=== PATIENT | female | born 1975 | race Caucasian/White ===

== ENCOUNTER 2018-04-15 17:21 | Emergency (ER) | payer BC, OTHER ==
[2018-04-15] MEDS ORDERED: SODIUM CHLORIDE 0.9% 1,000 ML IV STA (18:15)
[2018-04-15] MEDS ORDERED: KETOROLAC 30 MG/ML 1 ML VIAL IVP STA (18:15)
--- NOTE | 2018-04-15 18:15 | ED ---
General Adult HPI - General Source: patient, RN notes reviewed Mode of arrival: ambulatory Limitations: no limitations <Xiang Fernandez - Last Filed: 04/15/18 20:57> <Shayan Kaplan - Last Filed: 04/15/18 22:45> - General Chief complaint: Abdominal Pain Stated complaint: POSS GALLBLADDER Time Seen by Provider: 04/15/18 17:47 - History of Present Illness Initial comments: 43-year-old female presents to the emergency department for a chief complaint of left upper back pain. Patient states this has been ongoing for 3 years. Patient states she finally came to the emergency department to get this evaluated because it was somewhat worse today. Patient states she believes this is her gallbladder. She states her mother had the same symptoms when she had her "gall bladder attack" and when she had appendicitis she had symptoms on the left side. Patient describes this pain as a sharp pain in her left side upper back. She denies any radiating pain. She states that she moves her arm and makes the pain in her back worse but denies any left upper arm pain. She denies any anterior chest pain or abdominal pain. She does admit that she has a sensation of fullness at times after eating. No nausea or vomiting. No cardiac history. Patient has no other complaints at this time including shortness of breath, chest pain, headache, or visual changes. (Xiang Fernandez) - Related Data Home Medications Medication Instructions Recorded Confirmed Fluticasone Nasal [place] [Flonase 2 spray EA NOSTRIL BID PRN 04/15/18 04/15/18 Nasal [place]] Loratadine [Claritin] 10 mg PO DAILY 04/15/18 04/15/18 Multivitamins, Thera [Multivitamin 1 tab PO DAILY 04/15/18 04/15/18 (formulary)] Allergies Allergy/AdvReac Type Severity Reaction Status Date / Time gluten Allergy Nausea & Verified 04/15/18 17:57 Vomiting lactase [From Dairy Aid] Allergy Unknown Verified 04/15/18 17:57 Sulfa (Sulfonamide Allergy Rash/Hives Verified 04/15/18 17:57 Antibiotics) Review of Systems ROS Other: All systems not noted in ROS Statement are negative. <Xiang Fernandez - Last Filed: 04/15/18 20:57> ROS Other: All systems not noted in ROS Statement are negative. <Shayan Kaplan - Last Filed: 04/15/18 22:45> ROS Statement: Those systems with pertinent positive or pertinent negative responses have been documented in the HPI. Past Medical History Additional Past Medical History / Comment(s): POSSIBLE GLUTEN INTOLERANCE, OVARIAN CYSTS History of Any Multi-Drug Resistant Organisms: None Reported Past Surgical History: Appendectomy Past Psychological History: No Psychological Hx Reported Smoking Status: Never smoker Past Alcohol Use History: None Reported Past Drug Use History: None Reported <Xiang Fernandez - Last Filed: 04/15/18 20:57> General Exam Limitations: no limitations General appearance: alert, in no apparent distress Head exam: Present: atraumatic, normocephalic, normal inspection Eye exam: Present: normal appearance, PERRL, EOMI. Absent: scleral icterus, conjunctival injection, periorbital swelling ENT exam: Present: normal exam, mucous membranes moist Neck exam: Present: normal inspection, full ROM. Absent: tenderness, meningismus, lymphadenopathy Respiratory exam: Present: normal lung sounds bilaterally. Absent: respiratory distress, wheezes, rales, rhonchi, stridor Cardiovascular Exam: Present: regular rate, normal rhythm, normal heart sounds. Absent: systolic murmur, diastolic murmur, rubs, gallop, clicks GI/Abdominal exam: Present: soft, normal bowel sounds. Absent: distended, tenderness (No tenderness in the abdomen including in the right upper quadrant) , guarding, rebound, rigid Back exam: Present: tenderness (It is to the upper thoracic back). Absent: CVA tenderness (R), CVA tenderness (L) Neurological exam: Present: alert, oriented X3, CN II-XII intact Psychiatric exam: Present: normal affect, normal mood <Xiang Fernandez - Last Filed: 04/15/18 20:57> Course <Xiang Fernandez - Last Filed: 04/15/18 20:57> <Shayan Kaplan - Last Filed: 04/15/18 22:45> Vital Signs 04/15/18 04/15/18 17:28 22:02 Temperature 98.5 F 98.5 F Pulse Rate 80 83 Respiratory 16 18 Rate Blood Pressure 153/92 105/68 O2 Sat by Pulse 100 99 Oximetry - Reevaluation(s) Reevaluation #1: 04/15/18 17:50 When I saw patient I discussed that with the symptoms a CT of the chest should be obtained to evaluate aorta as well as an EKG. Patient refused this. She states she believes has her gallbladder and she does not insurance. Patient is aware of the risks. (Xiang Fernandez) Reevaluation #2: 04/15/18 20:37 At this time patient was informed that her gallbladder does not appear abnormal. Patient now agrees to have EKG and CT done. (Xiang Fernandez) EKG Findings - EKG Comments: EKG Findings:: NSR with a ventricular rate of 88, CA interval 152, QRS duration 90, QTc 450 <Xiang Fernandez - Last Filed: 04/15/18 20:57> Medical Decision Making - Lab Data Result diagrams: 04/15/18 18:26 04/15/18 18:26 <Xiang Fernandez - Last Filed: 04/15/18 20:57> - Lab Data Result diagrams: 04/15/18 18:26 04/15/18 18:26 <Shayan Kaplan - Last Filed: 04/15/18 22:45> - Medical Decision Making 43-year-old female presents to the emergency department for a chief complaint of left upper back pain by scapula. Patient states pain is worse with movement of the left arm. She denies any anterior chest pain she denies any abdominal pain. Triage note says patient has anterior chest pain however patient completely denies this when I speak with her. Patient states she believes this is her gallbladder. She states she has had these symptoms for years and pain is responsive to her diet. I spoke with patient and educated her that this could be cardiac in nature and I have a low suspicion of gallbladder as she does not have any right upper quadrant tenderness or pain. Patient states she does not think it is cardiac in nature and does not have insurance so does not want cardiac testing. She refuses EKG and CT at this time despite knowing the risks of aortic rupture. She did agree to lab work which showed a CBC and CMP within normal limits. Troponin less than 0.012. Amylase and lipase are within normal limits. She agreed to chest x-ray showed a normal chest. After ultrasound results showed a normal right upper quadrant without gallstones or dilated ducts, patient did agree to CAT scan and EKG. EKG was immediately obtained. CT chest abdomen pelvis was ordered to visualize aorta. Care signed out to Dr Kaplan at 2101 (Xiang Fernandez) The computed tomography scan of the abdomen, pelvis, and thorax was completed and is negative. She is feeling remarkably improved on recheck. It is felt as though her back pain likely could be related to musculoskeletal component. There is some mild muscle spasm on the left thoracic region. She does see a chiropractor at times for her neck and it is felt as though she may benefit from following up with the chiropractor for her back as well. This felt as though she is stable for discharge and leaves in no identifiable distress. ( Shayan Kaplan) - Lab Data Lab Results 04/15/18 04/15/18 04/15/18 Range/Units 18:26 18:26 18:26 WBC 7.7 (3.8-10.6) k/uL RBC 4.07 (3.80-5.40) m/uL Hgb 12.4 (11.4-16.0) gm/dL Hct 37.6 (34.0-46.0) % MCV 92.4 (80.0-100.0) fL MCH 30.5 (25.0-35.0) pg MCHC 33.0 (31.0-37.0) g/dL RDW 14.7 (11.5-15.5) % Plt Count 463 H (150-450) k/uL Neutrophils % 69 % Lymphocytes % 22 % Monocytes % 5 % Eosinophils % 2 % Basophils % 1 % Neutrophils # 5.3 (1.3-7.7) k/uL Lymphocytes # 1.7 (1.0-4.8) k/uL Monocytes # 0.4 (0-1.0) k/uL Eosinophils # 0.2 (0-0.7) k/uL Basophils # 0.0 (0-0.2) k/uL PT (9.0-12.0) sec INR (<1.2) APTT (22.0-30.0) sec Sodium 141 (137-145) mmol/L Potassium 3.9 (3.5-5.1) mmol/L Chloride 104 (98-107) mmol/L Carbon Dioxide 28 (22-30) mmol/L Anion Gap 9 mmol/L BUN 9 (7-17) mg/dL Creatinine 0.67 (0.52-1.04) mg/dL Est GFR (CKD-EPI)AfAm >90 (>60 ml/min/1.73 sqM) Est GFR (CKD-EPI)NonAf >90 (>60 ml/min/1.73 sqM) Glucose 101 H (74-99) mg/dL Calcium 9.8 (8.4-10.2) mg/dL Magnesium 2.0 (1.6-2.3) mg/dL Total Bilirubin 0.2 (0.2-1.3) mg/dL AST 24 (14-36) U/L ALT 25 (9-52) U/L Alkaline Phosphatase 33 L (38-126) U/L Total Creatine Kinase 46 (30-135) U/L CK-MB (CK-2) 0.3 (0.0-2.4) ng/mL CK-MB (CK-2) Rel Index 0.7 Troponin I <0.012 (0.000-0.034) ng/mL Total Protein 8.1 (6.3-8.2) g/dL Albumin 4.7 (3.5-5.0) g/dL Amylase 87 (30-110) U/L Lipase 111 (23-300) U/L Urine Color Urine Appearance (Clear) Urine pH (5.0-8.0) Ur Specific [place] (1.001-1.035) Urine Protein (Negative) Urine Glucose (UA) (Negative) Urine Ketones (Negative) Urine Blood (Negative) Urine Nitrite (Negative) Urine Bilirubin (Negative) Urine Urobilinogen (<2.0) mg/dL Ur Leukocyte Esterase (Negative) Urine RBC (0-5) /hpf Urine WBC (0-5) /hpf Ur Squamous Epith Cells (0-4) /hpf Urine Mucus (None) /hpf Urine HCG, Qual (Not Detectd) 04/15/18 04/15/18 04/15/18 Range/Units 18:42 18:48 18:48 WBC (3.8-10.6) k/uL RBC (3.80-5.40) m/uL Hgb (11.4-16.0) gm/dL Hct (34.0-46.0) % MCV (80.0-100.0) fL MCH (25.0-35.0) pg MCHC (31.0-37.0) g/dL RDW (11.5-15.5) % Plt Count (150-450) k/uL Neutrophils % % Lymphocytes % % Monocytes % % Eosinophils % % Basophils % % Neutrophils # (1.3-7.7) k/uL Lymphocytes # (1.0-4.8) k/uL Monocytes # (0-1.0) k/uL Eosinophils # (0-0.7) k/uL Basophils # (0-0.2) k/uL PT 10.4 (9.0-12.0) sec INR 1.0 (<1.2) APTT 24.5 (22.0-30.0) sec Sodium (137-145) mmol/L Potassium (3.5-5.1) mmol/L Chloride (98-107) mmol/L Carbon Dioxide (22-30) mmol/L Anion Gap mmol/L BUN (7-17) mg/dL Creatinine (0.52-1.04) mg/dL Est GFR (CKD-EPI)AfAm (>60 ml/min/1.73 sqM) Est GFR (CKD-EPI)NonAf (>60 ml/min/1.73 sqM) Glucose (74-99) mg/dL Calcium (8.4-10.2) mg/dL Magnesium (1.6-2.3) mg/dL Total Bilirubin (0.2-1.3) mg/dL AST (14-36) U/L ALT (9-52) U/L Alkaline Phosphatase (38-126) U/L Total Creatine Kinase (30-135) U/L CK-MB (CK-2) (0.0-2.4) ng/mL CK-MB (CK-2) Rel Index Troponin I (0.000-0.034) ng/mL Total Protein (6.3-8.2) g/dL Albumin (3.5-5.0) g/dL Amylase (30-110) U/L Lipase (23-300) U/L Urine Color Light Yellow Urine Appearance Clear (Clear) Urine pH 7.5 (5.0-8.0) Ur Specific [place] 1.004 (1.001-1.035) Urine Protein Negative (Negative) Urine Glucose (UA) Negative (Negative) Urine Ketones Negative (Negative) Urine Blood Small H (Negative) Urine Nitrite Negative (Negative) Urine Bilirubin Negative (Negative) Urine Urobilinogen <2.0 (<2.0) mg/dL Ur Leukocyte Esterase Negative (Negative) Urine RBC 1 (0-5) /hpf Urine WBC <1 (0-5) /hpf Ur Squamous Epith Cells <1 (0-4) /hpf Urine Mucus Rare H (None) /hpf Urine HCG, Qual Not Detected (Not Detectd) Disposition <Xiang Fernandez - Last Filed: 04/15/18 20:57> Is patient prescribed a controlled substance at d/c from ED?: No Time of Disposition: 22:45 <Shayan Kaplan - Last Filed: 04/15/18 22:45> Clinical Impression: Thoracic back pain, Strain of thoracic region Disposition: HOME SELF-CARE Condition: Good Instructions: Thoracic Back Strain (ED) Additional Instructions: Please use Motrin and/or Tylenol as needed for pain. Referrals: None,Stated [Primary Care Provider] - 1-2 days
[2018-04-15 18:38] LABS: Basophils % (A) 1 %; Eosinophils # (A) 0.2 k/uL (0-0.7); Eosinophils % (A) 2 %; HCT 37.6 % (34.0-46.0); HGB 12.4 gm/dL (11.4-16.0); Lymphocytes # (A) 1.7 k/uL (1.0-4.8); Lymphocytes % (A) 22 %; MCH 30.5 pg (25.0-35.0); MCV 92.4 fL (80.0-100.0); Mean Platelet Volume 6.8; Monocytes # (A) 0.4 k/uL (0-1.0); Monocytes % (A) 5 %; Neutrophils # (A) 5.3 k/uL (1.3-7.7); Neutrophils % (A) 69 %; Platelet Count 463 k/uL (150-450); RBC 4.07 m/uL (3.80-5.40); RDW 14.7 % (11.5-15.5); WBC 7.7 k/uL (3.8-10.6)
[2018-04-15 18:47] LABS: Creatine Kinase 46 U/L (30-135)
[2018-04-15 18:48] LABS: ALT 25 U/L (9-52); AST 24 U/L (14-36); Albumin 4.7 g/dL (3.5-5.0); Alkaline Phosphatase 33 U/L (38-126); Amylase 87 U/L (30-110); Anion Gap 9 mmol/L; Blood Urea Nitrogen 9 mg/dL (7-17); Calcium 9.8 mg/dL (8.4-10.2); Carbon Dioxide 28 mmol/L (22-30); Chloride 104 mmol/L (98-107); Glucose 101 mg/dL (74-99); Lipase 111 U/L (23-300); Potassium 3.9 mmol/L (3.5-5.1); Sodium 141 mmol/L (137-145); Total Bilirubin 0.2 mg/dL (0.2-1.3); Total Protein 8.1 g/dL (6.3-8.2)
--- NOTE | 2018-04-15 18:57 | XR ---
EXAMINATION TYPE: XR chest 2V DATE OF EXAM: 04/15/2018 COMPARISON: NONE HISTORY: Chest pain TECHNIQUE: Frontal and lateral views of the chest are obtained. FINDINGS: Heart and mediastinum are normal. Lungs are clear. Diaphragm is normal. Bony thorax is int act. IMPRESSION: Normal chest.
[2018-04-15 18:59] LABS: Creatine Kinase MB 0.3 ng/mL (0.0-2.4); Troponin I <0.012 ng/mL (0.000-0.034)
[2018-04-15 19:12] LABS: Partial Thromboplastin Time 24.5 sec (22.0-30.0); Prothrombin Time 10.4 sec (9.0-12.0)
--- NOTE | 2018-04-15 20:08 | US ---
EXAMINATION TYPE: US gallbladder DATE OF EXAM: 04/15/2018 COMPARISON: NONE CLINICAL HISTORY: pain. Pain EXAM MEASUREMENTS: Liver Length: 16.1 cm Gallbladder Wall: 0.2 cm CBD: 0.3 cm Right Kidney: 11.5 x 3.7 x 4.6 cm Pancreas: wnl Liver: wnl Gallbladder: wnl Evidence for sonographic Nunez's sign: No CBD: wnl Right Kidney: wnl IMPRESSION: Normal right upper quadrant abdominal sonogram. No gallstones or dilated ducts.
[2018-04-15 21:07] LABS: Appearance,Urine Clear (Clear); Bilirubin,Urine Negative (Negative); Blood,Urine Small (Negative); Color,Urine Light Yellow; Glucose,Urine (UA) Negative (Negative); Ketones,Urine Negative (Negative); Leukocyte Esterase,Urine Negative (Negative); Mucus,Urine Rare /hpf; Nitrite,Urine Negative (Negative); PH, Urine 7.5 (5.0-8.0); Protein,Urine Negative (Negative); RBC,Urine 1 /hpf (0-5); Specific Gravity,Urine 1.004 (1.001-1.035); Squamous Epithelial Cell,Urine <1 /hpf (0-4); Urobilinogen,Urine <2.0 mg/dL (<2.0); WBC,Urine <1 /hpf (0-5)
--- NOTE | 2018-04-15 21:53 | CT ---
EXAMINATION TYPE: CT ChestAbdPelvis w con DATE OF EXAM: 04/15/2018 COMPARISON: 11/09/2013 HISTORY: Back pain CT DLP: mGycm Automated exposure control for dose reduction was used. CONTRAST: CT scan of the chest, abdomen and pelvis is performed and , patient injected with mL of . The contras t was Isovue 100 mL. FINDINGS: The lungs are clear of infiltrate. There is no pleural effusion or pneumothorax. Heart size is normal . There is no pericardial effusion. Mediastinum is normal. There is no evidence of thoracic aortic an eurysm or dissection. There are no hilar masses. Liver spleen pancreas gallbladder appear normal. Bile ducts are not dilated. There is no adrenal mass . Kidneys show satisfactory contrast opacification. There is no hydronephrosis. Ureters are not dilat ed. Bladder distends smoothly. There is 3 cm fibroid on the right side of the uterus. There is no phyllis e fluid in the pelvis. There is no inguinal hernia. I see no intestinal wall thickening. There are no dilated loops. There is no mesenteric edema. Appendix is not seen. There is no sign of appendicitis. IMPRESSION: Negative CT scan abdomen and pelvis and chest. No evidence of aortic aneurysm or dissecti on. No adverse change compared to old exam.
[2018-04-15 22:03] VITALS: RESP 18
[2018-04-15 23:02] VITALS: BP 123/84; PULSE 66; TEMP 98.4
== END 2018-04-15 23:02 | disposition home or self-care (01) ==
LOC: EC 17:21
DX: S29.012A Strain of muscle and tendon of back wall of thorax, initial encounter (principal); Z79.899 Other long term (current) drug therapy; Z91.018 Allergy to other foods; Z88.2 Allergy status to sulfonamides; Z91.011 Allergy to milk products; X50.9XXA Other and unspecified overexertion or strenuous movements or postures, initial encounter
CPT/HCPCS: 99284; 96374; 96361; 36415; 93005; 80053; 82150; 82550; 82553; 83690; 83735; 84484; 85025; 85610; 85730; 81001; 81025; 71046; 76705; 71260; 74177; J1885; Q9967